=== PATIENT | male | born 1980 | race Caucasian/White ===

== ENCOUNTER 2019-08-18 11:16 | Emergency (ER) | payer OTHER ==
[~2019-08-18] VITALS: Ht 188 cm; Wt 79.4 kg
--- NOTE | 2019-08-18 11:20 | NUR ---
PT BIB [facility] TO ER BED 11
[2019-08-18 11:26] VITALS: BP 110/79
--- NOTE | 2019-08-18 11:32 | NUR ---
39 Y/O F C/C LEFT EAR PAIN X 1 WEEK. PER PT HAD SIMILAR LEFT EAR PAIN X 9 MONTHS AGO AND WAS GIVEN EAR DROPS, PAIN RELIEVED. PT WITH PAIN 10/10, PRESSURE/SCRATCHING SENSATION. DENIES FOREIGN BODY OBJECTS IN EAR. PT NKA. NO HX. NO RX. NO NVD, DIZZINESS. SIDE RAIL X1.
--- NOTE | 2019-08-18 12:11 | NUR ---
ERMD AT BEDSIDE
[2019-08-18 12:25] VITALS: BP 110/79
--- NOTE | 2019-08-18 12:26 | NUR ---
Patient discharged with v/s stable. Written and verbal after care instructions given and explained. Patient alert, oriented and verbalized understanding of instructions. Ambulatory with steady gait. All questions addressed prior to discharge. ID band removed. Patient advised to follow up with PMD. Rx of MOTRIN/BACTRIM/CIPRODEX/TRAMADOL given. Patient educated on indication of medication including possible reaction and side effects. Opportunity to ask questions provided and answered.
== END 2019-08-18 12:26 | disposition home or self-care (01) ==
LOC: MED 11:16
DX: H60.332 Swimmer's ear, left ear (principal); H60.12 Cellulitis of left external ear
CPT/HCPCS: 99283

== ENCOUNTER 2019-11-06 15:12 | Emergency (ER) | payer OTHER ==
[~2019-11-06] VITALS: Ht 188 cm; Wt 77.1 kg
[2019-11-06 15:29] VITALS: BP 124/76
--- NOTE | 2019-11-06 15:44 | NUR ---
39 Y/O MALE C/O LEFT SHOULDER PAIN, DULL NONRADIATING 7/10 PAIN. UNPROVOKED, PT DENIES ANY INJURY/TRAUMA. CMS+, ACTIVE ROM WITH PAIN. RADIAL PULSES PALPABLE 3+. NO DEFORMITIES NOTED. VSS. AMBULATORY WITH STEADY GAIT.
[2019-11-06] MEDS ORDERED: KETOROLAC 30 MG/ML VIAL IM ONE (16:40)
[2019-11-06 17:14] VITALS: BP 124/76
== END 2019-11-06 17:14 | disposition home or self-care (01) ==
LOC: MED 15:12
DX: M25.512 Pain in left shoulder (principal)
CPT/HCPCS: 73030; 96372; 99283; J1885; Q0092

== ENCOUNTER 2021-01-01 16:02 | Emergency (ER) | payer OTHER ==
[~2021-01-01] VITALS: Ht 188 cm; Wt 83.2 kg
[2021-01-01 16:10] VITALS: BP 132/79
--- NOTE | 2021-01-01 16:18 | NUR ---
PT AMBULATED TO ER BED 6
--- NOTE | 2021-01-01 16:20 | NUR ---
40 Y/O MALE C/O L EYE PAIN XYESTERDAY. PT WAS DRILLING AT HOME AND BELIEVES A METAL SHAVING IS IN HIS EYE. +RED AND TEARING. +SENSITIVITY TO LIGHT. PT STATES IT IS GETTING WORSE. RINSED EYE OUT WITH WATER. PT DENIES EYE CONTACT WEAR. PT A/O X4 WITH EVEN AND UNLABORED RESPIRATIONS PMH:DENIES NKDA
--- NOTE | 2021-01-01 16:29 | NUR ---
PAULINA MCGOWAN AT BEDSIDE EVALUATING PT
[2021-01-01] MEDS ORDERED: FLUORESCEIN OPTH STRIP 1 MG OP ONE (16:30)
[2021-01-01] MEDS ORDERED: TETRACAINE HCL/PF 0.5% OPTH 4 ML BTL OP ONE (16:30)
[2021-01-01] MEDS ORDERED: ERYT5OIN58 OP ×2 (16:40→16:41)
--- NOTE | 2021-01-01 16:53 | NUR ---
Patient discharged with v/s stable. Written and verbal after care instructions ABOUT CORNEAL ABRASION given and explained. Patient alert, oriented and verbalized understanding of instructions. Ambulatory with steady gait. All questions addressed prior to discharge. ID band removed. Patient advised to follow up with PMD. Rx of ERYTHROMYCIN BASE given. Patient educated on indication of medication including possible reaction and side effects. Opportunity to ask questions provided and answered.
== END 2021-01-01 16:53 | disposition home or self-care (01) ==
LOC: MED 16:02
DX: S05.02XA Injury of conjunctiva and corneal abrasion without foreign body, left eye, initial encounter (principal); Z88.1 Allergy status to other antibiotic agents; Z79.899 Other long term (current) drug therapy; X58.XXXA Exposure to other specified factors, initial encounter; Y93.89 Activity, other specified; Y92.89 Other specified places as the place of occurrence of the external cause; Y99.8 Other external cause status
CPT/HCPCS: 99283

== ENCOUNTER 2021-01-14 14:35 | Emergency (ER) | payer OTHER ==
[~2021-01-14] VITALS: Ht 188 cm; Wt 85.7 kg
[~2021-01-14 14:35] MED LIST: ERYT5OIN58 OP
[2021-01-14 14:43] VITALS: BP 110/62
--- NOTE | 2021-01-14 14:50 | NUR ---
Pt ambulated to chair B.
[2021-01-14] MEDS ORDERED: FLUORESCEIN OPTH STRIP 1 MG OP ONE (14:55)
[2021-01-14] MEDS ORDERED: TETRACAINE HCL/PF 0.5% OPTH 4 ML BTL OP ONE (14:55)
--- NOTE | 2021-01-14 15:23 | NUR ---
Patient ambulated from chair B to bed 06 with steady/even gait.
--- NOTE | 2021-01-14 15:24 | NUR ---
40 Y/O M BIB SELF FROM HOME C/O PERSISTENT LEFT EYE PAIN X 1 WEEK. (+) PHOTOSENSITIVITY, TEARING. DENIES BLURRING OF VISION. PT SEEN IN ED 1 WEEK AGO, PRESCRIBED WITH ERYTHROMYCIN OINTMENT AND TOLD TO COME BACK IF SYMPTOMS PERSIST. PATIENT TODAY REPORTS "THROUGHOUT THE DAY, WHEN I WIPE MY EYE THERE FEELS LIKE SOMETHING IN MY EYELID. IT FEELS LIKE THERE IS SOMETHING IN THERE." PATIENT DENIES PAIN, REPORTS DISCOMFORT. DENIES OTHER MEDS PRIOR TO ARRIVAL. BED LOCKED IN LOWEST POSITION, SIDE RAILS X 1, CALL LIGHT IN REACH. SNELLEN TEST: 20/20, OD; 20/20, OS PMH: NONE MEDs: NONE NKA
--- NOTE | 2021-01-14 15:35 | NUR ---
PAULINA Bennett is evaluating pt at bedside
[2021-01-14 15:55] VITALS: BP 110/62
--- NOTE | 2021-01-14 15:56 | NUR ---
Patient discharged with v/s stable. Written and verbal after care instructions given CORNEAL ABRASION and explained. Patient verbalized understanding. Ambulatory with steady gait. All questions addressed prior to discharge. Advised to follow up with PMD.
== END 2021-01-14 15:55 | disposition home or self-care (01) ==
LOC: MED 14:35
DX: T15.02XA Foreign body in cornea, left eye, initial encounter (principal); Z79.899 Other long term (current) drug therapy; X58.XXXA Exposure to other specified factors, initial encounter; Y93.89 Activity, other specified; Y92.89 Other specified places as the place of occurrence of the external cause; Y99.8 Other external cause status
CPT/HCPCS: 99283

== ENCOUNTER 2021-10-09 16:06 | Emergency (ER) | payer OTHER ==
[~2021-10-09] VITALS: Ht 188 cm; Wt 82.1 kg
[2021-10-09 16:23] VITALS: BP 131/87
--- NOTE | 2021-10-09 16:31 | NUR ---
PT AMBULATED WITH STEADY GAIT TO BED 8
--- NOTE | 2021-10-09 16:40 | NUR ---
MD LIPSCOMB AT BEDSIDE FOR EVALUATION
[2021-10-09 16:59] VITALS: BP 131/87
--- NOTE | 2021-10-09 16:59 | NUR ---
Patient discharged with v/s stable. Written and verbal after care instructions given and explained. Patient verbalized understanding. Ambulatory with steady gait. All questions addressed prior to discharge. Advised to follow up with PMD. NO NURSING CARE RENDERED
--- NOTE | 2021-10-09 18:20 | NUR ---
Chart checked and completed. The patient's care was reviewed and supervised by Jes Dallas RN.
== END 2021-10-09 16:59 | disposition home or self-care (01) ==
LOC: MED 16:06
DX: K40.90 Unilateral inguinal hernia, without obstruction or gangrene, not specified as recurrent (principal); F17.290 Nicotine dependence, other tobacco product, uncomplicated; Z79.899 Other long term (current) drug therapy; Z98.890 Other specified postprocedural states
CPT/HCPCS: 99281